=== PATIENT | female | born 1975 | race Caucasian/White ===

== ENCOUNTER 2016-12-12 08:14 | Emergency (ER) | payer OTHER, SELFPAY ==
[2016-12-12 08:26] VITALS: BP 156/110
[2016-12-12] MEDS ORDERED: LORazepam 0.5 MG Tab PO ONE (08:38)
--- NOTE | 2016-12-12 08:38 | EDM.PDOC ---
ED HPI GENERAL MEDICAL PROBLEM - General Chief Complaint: Neuro Symptoms/Deficits Stated Complaint: DIZZY Time Seen by Provider: 12/12/16 08:32 - History of Present Illness INITIAL COMMENTS - FREE TEXT/NARRATIVE: 41-year-old female presents emergency room with dizziness and headache. The patient tried meth for the first time about 6-8 hours ago. She has a history of anxiety and depression she uses gabapentin and clonidine that is prescribed for her. The patient has developed some dizziness and has a worsening headache. The patient has a history of right neck problems, she in the past has seen the chiropractor but no longer is doing this, this did help. She describes her headache as a nuisance, not all a bad headache. She denies any numbness or weakness. Patient used meth for the first time and has not felt right since then. She smoked it. Patient denies any worsening depression she has no wishes to hurt herself no suicidal thoughts or ideation. The patient is a little concerned she thought law-enforcement might arrest her. Past medical history remarkable for gastric bypass surgery she's had a tubal ligation and is treated for depression and anxiety. Headache Pain Score (Numeric/FACES): 7 - Related Data Allergies Allergy/AdvReac Type Severity Reaction Status Date / Time Penicillins Allergy Hives Verified 12/12/16 08:26 Sulfa (Sulfonamide Allergy Hives Verified 12/12/16 08:26 Antibiotics) Home Meds: Home Meds Gabapentin [Neurontin] 300 mg PO BID 12/12/16 [History] cloNIDine [Catapres] 0.1 mg PO TID 12/12/16 [History] Past Medical History Cardiovascular History: Reports: Hypertension Gastrointestinal History: Reports: GERD Psychiatric History: Reports: Anxiety, Depression - Past Surgical History HEENT Surgical History: Reports: Adenoidectomy, Tonsillectomy GI Surgical History: Reports: Bariatric Procedure, Cholecystectomy Female Surgical History: Reports: Breast Implant, Breast Reconstruction Social & Family History - Tobacco Use Smoking Status *Q: Current Every Day Smoker Years of Tobacco use: 25 Packs/Tins Daily: 1 - Recreational Drug Use Recreational Drug Use: Yes Drug Use in Last 12 Months: Yes Recreational Drug Type: Reports: Methamphetamine ED ROS GENERAL - Review of Systems Review Of Systems: See Below Constitutional: Reports: Other (Doesn't feel right and is dizzy). Denies: Fever , Chills HEENT: Reports: No Symptoms Respiratory: Reports: No Symptoms Cardiovascular: Reports: No Symptoms. Denies: Chest Pain, Dyspnea on Exertion, Palpitations GI/Abdominal: Reports: No Symptoms : Reports: No Symptoms Musculoskeletal: Reports: Neck Pain (This is chronic) Skin: Reports: No Symptoms Neurological: Reports: Dizziness, Headache. Denies: Confusion, Numbness, Paresthesia, Pre-Existing Deficit, Seizure, Syncope, Tingling, Tremors, Difficulty Walking, Weakness, Change in Speech, Gait Disturbance Psychiatric: Reports: Depression (She states her depression is no worse and she feels bad for using the meth but otherwise no change in her depression), Other ( The patient was a little concerned that perhaps law-enforcement followed her here). Denies: Hallucinations, Homicidal Ideation, Mood Lability, Suicidal Ideation ED EXAM, GENERAL - Physical Exam Exam: See Below Exam Limited By: No Limitations General Appearance: Alert, No Apparent Distress Eye Exam: Bilateral Eye: EOMI, Normal Inspection Ears: Normal External Exam, Normal Canal, Hearing Grossly Normal, Normal TMs Nose: Normal Inspection, Normal Mucosa, No Blood Head: Atraumatic, Normocephalic Neck: Normal Inspection, Supple, Other (She has a right-sided discomfort in her neck this is the pain that causes the discomfort in her head and this seems to be chronic for her). No: Tender Midline Respiratory/Chest: No Respiratory Distress, Lungs Clear, Normal Breath Sounds Cardiovascular: Normal Peripheral Pulses, Regular Rate, Rhythm, No Edema, No Murmur GI/Abdominal: Normal Bowel Sounds, Soft, Non-Tender Back Exam: No: CVA Tenderness (L), CVA Tenderness (R), Vertebral Tenderness Extremities: Normal Inspection, No Pedal Edema Neurological: Alert, Oriented, Normal Gait, Other (Cranial nerves II through XII grossly intact all muscle groups upper lower extremities recall appropriate bilaterally deep tendon reflexes at the brachial radialis and patella tendons are equal and appropriate bilaterally. Cerebellar testing is normal no areas of numbness) Psychiatric: Other (Denies suicidal thoughts or wishes to harm herself at times she gets tearful over what she did. The patient is perhaps a little delusional about law-enforcement.) Course - Vital Signs Last Recorded V/S: Last Vital Signs Temp 36.4 C 12/12/16 08:24 Pulse 59 L 12/12/16 08:24 Resp 15 12/12/16 08:24 BP 156/110 H 12/12/16 08:24 Pulse Ox 98 12/12/16 08:24 - Orders/Labs/Meds Labs: Laboratory Tests 12/12/16 12/12/16 12/12/16 Range/Units 10:00 10:00 11:28 WBC 8.97 (3.98-10.04) K/mm3 RBC 4.69 (3.98-5.22) M/mm3 Hgb 15.3 (11.2-15.7) gm/L Hct 45.0 H (34.1-44.9) % MCV 95.9 H (79.4-94.8) fl MCH 32.6 H (25.6-32.2) pg MCHC 34.0 (32.2-35.5) g/dl RDW Std Deviation 42.7 (36.4-46.3) fL Plt Count 216 (182-369) K/mm3 MPV 10.9 (9.4-12.3) fl Neutrophils % (Manual) 65 H (40-60) % Band Neutrophils % 0 (0-10) % Lymphocytes % (Manual) 27 (20-40) % Atypical Lymphs % 0 % Monocytes % (Manual) 7 (2-10) % Eosinophils % (Manual) 1 (0.7-5.8) % Basophils % (Manual) 0 L (0.1-1.2) Platelet Estimate Adequate RBC Morph Comment Normal Sodium 139 (136-145) mEq/L Potassium 4.0 (3.5-5.1) mEq/L Chloride 104 (98-107) mEq/L Carbon Dioxide 24 (21-32) mEq/L Anion Gap 15.0 (5-15) BUN 8 (7-18) mg/dL Creatinine 0.8 (0.55-1.02) mg/dL Est Cr Clr Drug Dosing 93.35 mL/min Estimated GFR (MDRD) > 60 (>60) mL/min BUN/Creatinine Ratio 10.0 L (14-18) Glucose 158 H (74-106) mg/dL Calcium 8.9 (8.5-10.1) mg/dL Magnesium 1.9 (1.8-2.4) mg/dl Total Bilirubin 1.2 H (0.2-1.0) mg/dL AST 18 (15-37) U/L ALT 32 (14-59) U/L Alkaline Phosphatase 105 (46-116) U/L Total Protein 7.1 (6.4-8.2) g/dl Albumin 3.8 (3.4-5.0) g/dl Globulin 3.3 gm/dL Albumin/Globulin Ratio 1.2 (1-2) TSH 3rd Generation 1.825 (0.358-3.74) uIU/mL Urine Color (Yellow) Urine Appearance (Clear) Urine pH (5.0-8.0) Ur Specific [place] (1.005-1.030) Urine Protein (Negative) Urine Glucose (UA) (Negative) Urine Ketones (Negative) Urine Occult Blood (Negative) Urine Nitrite (Negative) Urine Bilirubin (Negative) Urine Urobilinogen (0.2-1.0) Ur Leukocyte Esterase (Negative) Urine RBC (0-5) /hpf Urine WBC (0-5) /hpf Ur Epithelial Cells (0-5) /hpf Urine Bacteria (FEW) /hpf Urine Mucus (FEW) /hpf Urine Opiates Screen Presumptive positive H (NEGATIVE) Ur Buprenorphine Scrn Negative (NEGATIVE) Ur Oxycodone Screen Negative (NEGATIVE) Urine Methadone Screen Negative (NEGATIVE) Ur Propoxyphene Screen Negative (NEGATIVE) Ur Barbiturates Screen Negative (NEGATIVE) Ur Tricyclics Screen Negative (NEGATIVE) Ur Phencyclidine Scrn Negative (NEGATIVE) Ur Amphetamine Screen Presumptive positive H (NEGATIVE) U Methamphetamines Scrn Presumptive positive H (NEGATIVE) U Benzodiazepines Scrn Negative (NEGATIVE) U Cocaine Metab Screen Negative (NEGATIVE) U Marijuana (THC) Screen Negative (NEGATIVE) Ethyl Alcohol 0.00 (0.00) gm% 12/12/16 Range/Units 11:28 WBC (3.98-10.04) K/mm3 RBC (3.98-5.22) M/mm3 Hgb (11.2-15.7) gm/L Hct (34.1-44.9) % MCV (79.4-94.8) fl MCH (25.6-32.2) pg MCHC (32.2-35.5) g/dl RDW Std Deviation (36.4-46.3) fL Plt Count (182-369) K/mm3 MPV (9.4-12.3) fl Neutrophils % (Manual) (40-60) % Band Neutrophils % (0-10) % Lymphocytes % (Manual) (20-40) % Atypical Lymphs % % Monocytes % (Manual) (2-10) % Eosinophils % (Manual) (0.7-5.8) % Basophils % (Manual) (0.1-1.2) Platelet Estimate RBC Morph Comment Sodium (136-145) mEq/L Potassium (3.5-5.1) mEq/L Chloride (98-107) mEq/L Carbon Dioxide (21-32) mEq/L Anion Gap (5-15) BUN (7-18) mg/dL Creatinine (0.55-1.02) mg/dL Est Cr Clr Drug Dosing mL/min Estimated GFR (MDRD) (>60) mL/min BUN/Creatinine Ratio (14-18) Glucose (74-106) mg/dL Calcium (8.5-10.1) mg/dL Magnesium (1.8-2.4) mg/dl Total Bilirubin (0.2-1.0) mg/dL AST (15-37) U/L ALT (14-59) U/L Alkaline Phosphatase (46-116) U/L Total Protein (6.4-8.2) g/dl Albumin (3.4-5.0) g/dl Globulin gm/dL Albumin/Globulin Ratio (1-2) TSH 3rd Generation (0.358-3.74) uIU/mL Urine Color Yellow (Yellow) Urine Appearance Slt cloudy H (Clear) Urine pH 7.0 (5.0-8.0) Ur Specific [place] 1.020 (1.005-1.030) Urine Protein Trace H (Negative) Urine Glucose (UA) Negative (Negative) Urine Ketones 1+ H (Negative) Urine Occult Blood Negative (Negative) Urine Nitrite Negative (Negative) Urine Bilirubin Negative (Negative) Urine Urobilinogen 1.0 (0.2-1.0) Ur Leukocyte Esterase Negative (Negative) Urine RBC Not seen (0-5) /hpf Urine WBC 0-5 (0-5) /hpf Ur Epithelial Cells 5-10 H (0-5) /hpf Urine Bacteria Few (FEW) /hpf Urine Mucus Many H (FEW) /hpf Urine Opiates Screen (NEGATIVE) Ur Buprenorphine Scrn (NEGATIVE) Ur Oxycodone Screen (NEGATIVE) Urine Methadone Screen (NEGATIVE) Ur Propoxyphene Screen (NEGATIVE) Ur Barbiturates Screen (NEGATIVE) Ur Tricyclics Screen (NEGATIVE) Ur Phencyclidine Scrn (NEGATIVE) Ur Amphetamine Screen (NEGATIVE) U Methamphetamines Scrn (NEGATIVE) U Benzodiazepines Scrn (NEGATIVE) U Cocaine Metab Screen (NEGATIVE) U Marijuana (THC) Screen (NEGATIVE) Ethyl Alcohol (0.00) gm% Meds: Medications Discontinued Medications Generic Name Dose Route Start Last Admin Trade Name Jamie PRN Reason Stop Dose Admin Lorazepam 0.5 mg 12/12/16 08:38 12/12/16 08:48 Ativan PO 12/12/16 08:39 0.5 mg ONETIME ONE Administration - Re-Assessments/Exams Free Text/Narrative Re-Assessment/Exam: 12/12/16 10:01 Patient was initially given 0.5 mg of Ativan and started to feel better she is taking fluids difficulty. The initial plan was to make sure she was taking fluids and her vital signs are stable. And she had an episode or where she was very responsive. X-ray tech thought she heard alarm go off when injected patient had a sternal rub the patient did not respond nursing gave another sternal rub she did not respond a third nurse shook her hand and she woke up there was some concerns that she had a very brief run of V. tach however think this is artifact her QRSs stayed regular. We offered to get labs she refused that and she did consent. She denies being suicidal or having any wishes to hurt herself. 12/12/16 11:50 Patient is doing well at this time she's trying to eat. Awaiting UA she wants to go home. 12/12/16 12:41 Patient doing well at this time she voices concerns about going home, or were she's been staying. At this point we are working on getting social work to evaluate her and help with the charge options 12/12/16 15:03 Patient is able to find a ride and social work does not have any options for her and patient think she can do right now. Departure - Departure Time of Disposition: 15:05 Disposition: Home, Self-Care 01 Clinical Impression: Methamphetamine abuse - Discharge Information Forms: ED Department Discharge Additional Instructions: Return to the emergency room with any questions or problems. Followup in the hospital clinic early next week for recheck sooner if needed. [phone].
== END 2016-12-12 15:30 | disposition home or self-care (01) ==
LOC: JD.ED 08:14
DX: F15.10 Other stimulant abuse, uncomplicated (principal); I10 Essential (primary) hypertension; K21.9 Gastro-esophageal reflux disease without esophagitis; F41.9 Anxiety disorder, unspecified; F32.9 Major depressive disorder, single episode, unspecified; F17.210 Nicotine dependence, cigarettes, uncomplicated; Z98.84 Bariatric surgery status; Z90.49 Acquired absence of other specified parts of digestive tract; Z98.890 Other specified postprocedural states; Z88.0 Allergy status to penicillin; Z88.2 Allergy status to sulfonamides
CPT/HCPCS: 36415; 80053; 80306; 81001; 83735; 84443; 85025; 99284; A9270; G0480; 99283